=== PATIENT | male | born 1965 | race Caucasian/White ===

== ENCOUNTER → 2024-02-20 17:34 | Outpatient (REF) | payer BC, SELFPAY | LOC: MRI 3T 17:34 | PROVIDERS: ATTENDING PHYSICIAN Neurological Surgery; FAMILY PHYSICIAN Internal Medicine | DX: D33.3 Benign neoplasm of cranial nerves (principal) | CPT/HCPCS: 70553; A9575 ==

== ENCOUNTER → 2024-07-13 11:00 | Outpatient (REF) | payer BC, SELFPAY | LOC: HWRAD 11:00 | PROVIDERS: ATTENDING PHYSICIAN Otolaryngology; FAMILY PHYSICIAN Internal Medicine | DX: J32.8 Other chronic sinusitis (principal) | CPT/HCPCS: 70486 ==

== ENCOUNTER → 2025-06-16 18:46 | Outpatient (REF) | payer BC, SELFPAY | LOC: MRI 3T 18:46 | PROVIDERS: ATTENDING PHYSICIAN Neurological Surgery; FAMILY PHYSICIAN Internal Medicine | DX: D33.3 Benign neoplasm of cranial nerves (principal) | CPT/HCPCS: 70553; A9575 ==